=== PATIENT | female | born 1955 | race African-American/Black ===

== ENCOUNTER → 2017-01-03 | Outpatient (CLI) | payer BC ==
--- NOTE | 2017-01-03 18:31 | RAD ---
HIP LEFT 1 VIEW WITH PELVIS Clinical Indication: LT HIP AND LOWER BACK PAIN FOR SEVERAL MONTHS Comparison: None. Findings: No acute fracture or malalignment. Mild bilateral hip, bilateral SI joint, and pubic symphysis arthrosis. No significant soft tissue abnormality. IMPRESSION: 1. No acute fracture or malalignment. 2. Mild bilateral hip, bilateral SI joints, and pubic symphysis arthrosis.
--- NOTE | 2017-01-03 18:33 | RAD ---
LUMBAR SPINE MIN 4V Clinical Indication: LT HIP AND LOWER BACK PAIN FOR SEVERAL MTHS Comparison: None. Findings: There are 5 nonrib-bearing lumbar-type vertebral bodies. Straightening of the normal lumbar lordosis. No listhesis. Vertebral body heights are maintained. Mild multilevel degenerative changes of the visualized spine. Vascular calcifications. IMPRESSION: 1. No acute fracture or malalignment. 2. Mild multilevel degenerative changes of the visualized spine.
== END | disposition home or self-care (01) ==
LOC: DXRADRC 11:48
PROVIDERS: ATTEND Internal Medicine
DX: M47.896 Other spondylosis, lumbar region (principal); M16.12 Unilateral primary osteoarthritis, left hip; M53.86 Other specified dorsopathies, lumbar region
CPT/HCPCS: 72110; 73501